=== PATIENT | female | born 1985 | race Caucasian/White ===

== ENCOUNTER 2018-12-04 16:49 | Emergency (ER) | payer MEDICAID ==
[~2018-12-04] VITALS: Ht 152.4 cm; Wt 69.9 kg
[2018-12-04 16:51] VITALS: RESP 18; Ht 152.4 cm; Wt 69.9 kg
--- NOTE | 2018-12-04 19:03 | ERD ---
ER Documentation Chief Complaint Chief Complaint rectal pain/bleeding x 1 week HPI 33-year-old female with history of constipation, presents to the emergency department, complaining of 1 week with worsening of rectal pain, associated with a lump sensation. The pain is sharp, constant, 8/10. The patient has been us ing multiple [id number] medications for hemorrhoids without improvement of the symptoms. ROS All systems reviewed and are negative except as per history of present illness. Medications Home Meds Active Scripts Magnesium Hydroxide* (Milk Of Magnesia*) 400 Mg/5 Ml Oral.susp, 30 ML PO DAILY for 5 Days, ML Prov:MALDONADO GARCIA MD 12/05/18 Magnesium Citrate* (Magnesium Citrate*) 296 Ml Solution, 296 ML PO ONCE for 2 Days, #2 BOTTLE Prov:MALDONADO GARCIA MD 12/05/18 Lidocaine (RECTICARE) 30 Gm Cream..g., 30 GM TP BID for pain, #1 TUBE Prov:ANGELITA GOMEZ 12/05/18 Docusate Sodium* (Colace*) 100 Mg Capsule, 100 MG PO TID, #30 CAP Prov:MALDONADO GARCIA MD 12/04/18 Baclofen* (Baclofen*) 10 Mg Tablet, 10 MG PO Q8, #15 TAB Prov:MALDONADO GARCIA MD 12/04/18 Lidocaine (Lidocaine Viscous) 100 Ml Soln, 60 ML MM Q2HWA PRN for PAIN, #60 ML Prov:MALDONADO GARCIA MD 12/04/18 Ibuprofen* (Motrin*) 600 Mg Tab, 600 MG PO Q8, #30 TAB Prov:MALDONADO GARCIA MD 12/04/18 Sulfamethoxazole/Trimethoprim* (Bactrim Ds* Tablet) 1 Each Tablet, 1 TAB PO BID, #14 TAB Prov:MALDONADO GARCIA MD 12/04/18 Allergies Allergies: Coded Allergies: Penicillins (Verified Allergy, Unknown, 12/04/18) PMhx/Soc Hx Miscellaneous Medical Probl: Yes (Hemorrhoids) Hx Alcohol Use: Yes (socially) Hx Substance Use: No Hx Tobacco Use: No Smoking Status: Never smoker Physical Exam Vitals Vital Signs Date Temp Pulse Resp B/P (MAP) Pulse Ox O2 O2 Flow FiO2 Time Delivery Rate 12/04/18 70 125/76 100 Room Air 19:43 (92) 12/04/18 98.9 62 18 135/60 100 16:51 (85) Physical Exam Const: No acute distress Head: Atraumatic Eyes: Normal Conjunctiva ENT: Normal External Ears, Nose and Mouth. Neck: Full range of motion. No meningismus. Resp: Clear to auscultation bilaterally Cardio: Regular rate and rhythm, no murmurs Abd: Soft, non tender, non distended. Normal bowel sounds. Rectal: External 1 x 1 cm thrombosed hemorrhoid. Skin: No petechiae or rashes Back: No midline or flank tenderness Ext: No cyanosis, or edema Neur: Awake and alert Psych: Normal Mood and Affect Results 24 hrs Current Medications Medications Dose Sig/Darren Start Time Status Last (Trade) Ordered Route PRN Stop Time Admin Dose Reason Admin Morphine 10 mg ONCE ONCE 12/04/18 DC 12/04/18 Sulfate PO 19:30 12/04/18 19:19 (morphine) 19:31 Procedures/MDM Vital signs stable. Differential diagnosis include but not limited to: Skin tag, fistula, abscess, cellulitis, viral warts, neoplasm, less likely rectal prolapse. Physical examination and clinical presentation consistent most likely with thrombosed external hemorrhoid. During the ED course the patient remained stable, no new complaints. The patient received treatment with excision of the thrombosed hemorrhoid presenting overall improvement of the symptoms. Excision of thrombosed hemorrhoid: Informed consent obtained, risk and benefits discussed with patient. Indication: Severe pain. Location: Perianal Area cleaned and sterilized with chlorhexidine solution, 2 mL of lidocaine without epi was infiltrated in the area of the incision. 5 mm incision was made with 11 blade scalpel, blood clot was clasped with hemostat and carefully removed completely. The patient tolerated well the procedure without complications, therefore, is stable to be discharged home with a Rx for antibiotics and pain medication, some side effects of prescribed medications (headache, rash, nausea, vomiting, diarrhea, drowsiness, habituation, bleeding, hypertension, interactions with other medications) were reviewed. The patient was instructed to follow up with the primary care provider in the next 48h. If symptoms persist, worsen or new symptoms develop, then patient should return to the ED immediately. Instructions explained and given directly by me to the patient [in Bruneian] with acknowledgment and demonstrated understanding. Disclaimer: Inadvertent spelling and grammatical errors are likely due to EHR/dictation software use and do not reflect on the overall quality of patient care. Also, please note that the electronic time recorded on this note does not necessarily reflect the actual time of the patient encounter. Departure Diagnosis: Primary Impression: Thrombosed hemorrhoids Condition: Stable Additional Instructions: Muchas romina por [facility] para salinas servicio. Esperamos que en salinas visita a la patti de emergencia salinas problema medico haya sido solucionado y que se sienta mucho mejor. Para estar seguros que salinsa mejoria sigue en proceso, le pedimos el favor de hacer humphrey louise de seguimiento medico con salinas doctor primario en los proximos 2-4 tsang. Lleve con usted estos documentos y las medicinas recetadas. Si reshma sintomas empeoran, NO SE ESPERE, por favor regrese a patti de emergencia INMEDIATAMENTE. En bon que usted no tenga un mdico de atencin primaria: Llame al mdico o clnica comunitaria de referencia que aparece abajo greg las horas de consultorio para hacer humphrey louise para que le vean. CLINICAS: [facility] [phone] [facility] [phone] [facility] [phone] [facility] [phone] [facility] [phone] [facility] [phone] MD Dec 04, 2018 19:03
[2018-12-04] MEDS ORDERED: morphine LIQ (10 MG/5 ML) CUP PO ONE (19:30)
[2018-12-04] MEDS ORDERED: IBUP-1542 PO (19:30)
[2018-12-04] MEDS ORDERED: SULF1TAB31 PO (19:30)
[2018-12-04] MEDS ORDERED: LIDO20SO19 MM (19:32)
[2018-12-04] MEDS ORDERED: BACL10TA PO (19:32)
[2018-12-04] MEDS ORDERED: DOCU-144 PO (19:42)
[2018-12-04 19:43] VITALS: BP 125/76; PULSE 70
[2018-12-05] MEDS ORDERED: LIDO30CR17 TP (13:00)
[2018-12-05] MEDS ORDERED: MAGN400O19 PO (15:19)
[2018-12-05] MEDS ORDERED: MAGN296S40 PO (15:19)
== END 2018-12-04 19:45 | disposition home or self-care (01) ==
LOC: FTE 16:49
DX: K64.5 Perianal venous thrombosis (principal)
CPT/HCPCS: Z7502; Z7610; 99283

== ENCOUNTER 2018-12-05 11:48 | Emergency (ER) | payer MEDICAID ==
[~2018-12-05] VITALS: Ht 165.1 cm; Wt 69.8 kg
[~2018-12-05 11:48] MED LIST: BACL10TA PO; DOCU-144 PO; IBUP-1542 PO; LIDO20SO19 MM; SULF1TAB31 PO
[2018-12-05 11:52] VITALS: Ht 165.1 cm; Wt 69.8 kg
[2018-12-05] MEDS ORDERED: LIDO30CR17 TP (13:00)
--- NOTE | 2018-12-05 13:03 | ERD ---
ER Documentation Chief Complaint Chief Complaint Patient here for a wound check /recheck HPI 33-year-old female presents the emergency department complaining of rectal pain. Patient states that she has had hemorrhoids for over 15 years. They have caused her significant discomfort for that time. Yesterday, she presented to this emergency department for a reevaluation of her rectal pain and a hemorrhoidorphy was performed. Patient reports ongoing discomfort in the rectal area since that time with no fevers, chills, vomiting, bleeding. She states she has been taking her prescribed medication including her antibiotic. ROS All systems reviewed and are negative except as per history of present illness. Medications Home Meds Active Scripts Lidocaine (RECTICARE) 30 Gm Cream..g., 30 GM TP BID for pain, #1 TUBE Prov:ANGELITA GOMEZ 12/05/18 Docusate Sodium* (Colace*) 100 Mg Capsule, 100 MG PO TID, #30 CAP Prov:MALDONADO GARCIA MD 12/04/18 Baclofen* (Baclofen*) 10 Mg Tablet, 10 MG PO Q8, #15 TAB Prov:MALDONADO GARCIA MD 12/04/18 Lidocaine (Lidocaine Viscous) 100 Ml Soln, 60 ML MM Q2HWA PRN for PAIN, #60 ML Prov:MALDONADO GARCIA MD 12/04/18 Ibuprofen* (Motrin*) 600 Mg Tab, 600 MG PO Q8, #30 TAB Prov:MALDONADO GARCIA MD 12/04/18 Sulfamethoxazole/Trimethoprim* (Bactrim Ds* Tablet) 1 Each Tablet, 1 TAB PO BID, #14 TAB Prov:MALDONADO GARCIA MD 12/04/18 Allergies Allergies: Coded Allergies: Penicillins (Verified Allergy, Unknown, 12/04/18) PMhx/Soc Hx Miscellaneous Medical Probl: Yes (Hemorrhoids) Hx Alcohol Use: Yes (socially) Hx Substance Use: No Hx Tobacco Use: No FmHx Noncontributory for chief complaint Physical Exam Vitals Vital Signs Date Temp Pulse Resp B/P (MAP) Pulse Ox O2 O2 Flow FiO2 Time Delivery Rate 12/05/18 98.7 80 20 136/71 99 11:52 (92) Physical Exam General: Uncomfortable but well-appearing in no distress External rectal examination: Patient has a decompressed hemorrhoid. No evidence of abscess or infection. No bleeding. Procedures/MDM Patient was taken to a room, seen and examined Medical decision making: Patient presents after hemorrhoidorphy for a wound check without evidence of ongoing bleeding or infection. She appears to be clinically well and appropriate for outpatient care already on an antibiotic as well as stool softeners. Departure Diagnosis: Primary Impression: Hemorrhoids Condition: Stable Patient Instructions: Hemorrhoids Additional Instructions: Please follow up with the [facility] doctors to discuss operating on the hemorrhoids. Return for any problems or concerns ANGELITA GOMEZ Dec 05, 2018 13:03
[2018-12-05] MEDS ORDERED: SOD CHLORIDE 0.9% 1,000 ML IV ONE (13:30)
[2018-12-05] MEDS ORDERED: KETOROLAC 30 MG INJ IV STA (14:21)
[2018-12-05] MEDS ORDERED: IOHEXOL 300MG/ML 150 ML BTL ONE (14:22)
[2018-12-05] MEDS ORDERED: SOD CHLORIDE 0.9% 100 ML ONE (14:22)
[2018-12-05] MEDS ORDERED: DEXAMETHASONE 10 MG/ML 1 ML INJ IV ONE (14:30)
--- NOTE | 2018-12-05 15:01 | EN ---
Date/Time of Note Date/Time of Note DATE: 12/05/18 TIME: 15:01 ER Progress Note DIAGNOSTIC IMAGING REPORT Patient: ERNIE SALINAS : 1985 Age: 33 Sex: F MR #: [id number] DOS: 12/05/18 1326 Ordering MD: MALDONADO GARCIA MD Location: [facility] Room/Bed: PROCEDURE: CT abdomen and pelvis with contrast. CLINICAL INDICATION: Perirectal pain TECHNIQUE: CT scan of the abdomen and pelvis without oral contrast was performed and is reconstructed at 2.5 mm contiguous axial intervals from the dome of the diaphragm to the inferior pubic rami.. The patient was scanned with intravenous contrast. Sagittal and coronal reformatted images were obtained from the axial source images. The calculated radiation dose measures 563 mGy centimeters. The CTDI measures 810 mGy. Individualized dose optimization technique was used for the performance of this exam. This included 1. Automated exposure control. 2. Adjustment of the mA and / or kV according to the patient's size. 3. Use of iterative reconstructed technique. COMPARISON: None. FINDINGS: The lung bases are clear of any infiltrate or nodule. No effusion is seen. The liver is of normal size, contour and attenuation with no mass or ductal dilatation. No gallstones are visualized. No splenic, adrenal or pancreatic abnormalities present. Kidneys enhance symmetrically and are of normal size and contour. No hydronephrosis, calculus or masses seen. Ureters are of normal course and caliber with no stone. No bladder mass or stone is present. There is an IUD within the endometrial canal. No adnexal mass is identified. There is no aneurysm. No adenopathy is present. No bowel mass or obstruction is present. The appendix is normal. No phlegmon, ascites or pneumoperitoneum is visualized. The osseous structures are intact. IMPRESSION: No evidence of urolithiasis, obstructive uropathy, diverticulitis or appendicitis. No mass, adenopathy or abscess. .Tirso Farias MD, MD Date Time Electronically viewed and signed by .Tirso Farias MD, MD on 12/05/2018 14:50 .A/ CC: MALDONADO GARCIA MD [phone] MALDONADO GARCIA MD Dec 05, 2018 15:01
[2018-12-05] MEDS ORDERED: MAGN296S40 PO (15:19)
[2018-12-05] MEDS ORDERED: MAGN400O19 PO (15:19)
[2018-12-05 15:29] VITALS: BP 101/71; PULSE 80; RESP 20
== END 2018-12-05 15:31 | disposition home or self-care (01) ==
LOC: FTE 11:48
DX: K64.9 Unspecified hemorrhoids (principal)
CPT/HCPCS: 74177; 80048; 81001; 81025; 85025; 96361; 96374; 96375; J1100; J1885; J7030; Q9967; Z7502; Z7610